=== PATIENT | female | born 1990 | race Caucasian/White ===

== ENCOUNTER 2018-01-09 01:36 | Emergency (ER) | payer MEDICAID ==
[~2018-01-09] VITALS: Ht 165.1 cm; Wt 75.4 kg
[2018-01-09 05:34] VITALS: BP 121/81
== END 2018-01-09 05:34 | disposition home or self-care (01) ==
LOC: ED 01:36
DX: S80.862A Insect bite (nonvenomous), left lower leg, initial encounter (principal); L03.116 Cellulitis of left lower limb; T78.49XA Other allergy, initial encounter; W57.XXXA Bitten or stung by nonvenomous insect and other nonvenomous arthropods, initial encounter; Y93.89 Activity, other specified; Y92.89 Other specified places as the place of occurrence of the external cause; Y99.8 Other external cause status
CPT/HCPCS: J7512

== ENCOUNTER 2019-12-04 20:07 | Emergency (ER) | payer SELFPAY ==
[~2019-12-04] VITALS: Ht 165.1 cm; Wt 65.8 kg
[2019-12-04 20:09] VITALS: Ht 165.1 cm; Wt 65.8 kg
[2019-12-04 21:33] VITALS: BP 134/90
== END 2019-12-04 21:33 | disposition left against medical advice (07) ==
LOC: ED 20:07
DX: R07.89 Other chest pain (principal); R06.02 Shortness of breath